=== PATIENT | male | born 1955 | race Caucasian/White ===

== ENCOUNTER 2018-10-20 11:09 | Outpatient (CLI) | payer OTHER ==
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
== END 2018-10-20 11:10 | disposition home or self-care (01) ==
LOC: BICRAD 11:09
PROVIDERS: ATTEND Nurse Practitioner Family
DX: M79.604 Pain in right leg (principal); Z98.890 Other specified postprocedural states